=== PATIENT | male | born 1970 ===

== ENCOUNTER 2017-08-27 11:38 | Emergency (ER) | payer OTHER ==
[2017-08-27 12:11] VITALS: BP 171/95; PULSE 62; TEMP 97.7; O2SAT 97; BMI 25.2
[2017-08-27 12:36] VITALS: RESP 18
--- NOTE | 2017-08-27 12:52 | ED PDOC ---
HPI: Skin/Bite Injury Time Seen by Provider: 08/27/17 12:09 Chief Complaint (Nursing): Abnormal Skin Integrity Chief Complaint (Provider): rash to both arms History Per: Patient History/Exam Limitations: no limitations Onset/Duration Of Symptoms: Days Current Symptoms Are (Timing): Still Present Additional Complaint(s): 47-year-old male presents to ED complaining of rash on bilateral upper extremities for 2 weeks. Pt states he was taking out the trash 2 weeks ago when a white powder spilled onto his upper extremities. Pt reports he was using over- the-counter cream with no relief. Does not remember the name of cream. He denies any fever or chills but has pruritus. PMD: [facility] (Dr. Cassidy) Past Medical History Reviewed: Historical Data, Nursing Documentation, Vital Signs Vital Signs: Last Vital Signs Temp 97.7 F 08/27/17 12:15 Pulse 62 08/27/17 12:15 Resp 18 08/27/17 12:15 BP 171/95 H 08/27/17 12:15 Pulse Ox 97 08/27/17 13:08 - Medical History PMH: Asthma, HTN - Surgical History Surgical History: No Surg Hx - Family History Family History: States: No Known Family Hx - Living Arrangements Living Arrangements: With Family - Social History Current smoker - smoking cessation education provided: No Alcohol: Social Drugs: Denies - Home Medications Home Medications: Ambulatory Orders Medication Instructions Recorded Fluticasone Nasal [Flonase] 1 spr NS BID #1 spr 03/24/16 Guaifenesin/Pseudoephedrne HCl 1 each PO BID #20 tab.er.12h 03/24/16 [Mucinex D ER 600-60 mg Tablet] Ibuprofen [Motrin Tab] 600 mg PO Q8 #30 tab 03/24/16 Oseltamivir [Tamiflu] 75 mg PO BID #9 cap 03/24/16 Hydrocortisone [Hydrocortisone 1 applic TOP BID #1 tube 08/27/17 2.5% Cream] - Allergies Allergies/Adverse Reactions: Allergies Allergy/AdvReac Type Severity Reaction Status Date / Time fruits Allergy Uncoded 03/24/16 20:59 Review of Systems ROS Statement: Except As Marked, All Systems Reviewed And Found Negative Skin: Positive for: Rash Physical Exam - Reviewed Nursing Documentation Reviewed: Yes Vital Signs Reviewed: Yes - Physical Exam Appears: Positive for: Well, Non-toxic, No Acute Distress Skin: Positive for: Rash ((+) erythematous macular and papular rash to bilateral forearms) Eye Exam: Positive for: Normal appearance Extremity: Positive for: Normal ROM Neurologic/Psych: Positive for: Alert, Oriented - ECG O2 Sat by Pulse Oximetry: 97 (RA) Pulse Ox Interpretation: Normal Medical Decision Making Medical Decision Making: Impression(s): Contact Dermatitis Upon provider evaluation patient is medically stable, and requires no further treatment in the ED at this time. Patient will be discharged with Rx for Hydrocortisone 2.5% Cream AND instructions for [id number] Benadryl for itching. Counseling was provided and all questions were answered regarding diagnosis and need for follow up with PCP in 2-3 days. There is agreement to discharge plan. Return if symptoms persist or worsen. Scribe Attestation: Documented by Emanuel Castro, acting as a scribe for Miri Vargas PA-C. Provider Scribe Attestation: All medical record entries made by the Scribe were at my direction and personally dictated by me. I have reviewed the chart and agree that the record accurately reflects my personal performance of the history, physical exam, medical decision making, and the department course for this patient. I have also personally directed, reviewed, and agree with the discharge instructions and disposition. Disposition - Clinical Impression Clinical Impression: Contact dermatitis - Patient ED Disposition Is Patient to be Admitted: No Counseled Patient/Family Regarding: Diagnosis, Need For Followup, Rx Given - Disposition Referrals: Ana Cassidy MD [Medical Doctor] - Disposition: Routine/Home Disposition Time: 12:51 Condition: STABLE Additional Instructions: Take over the counter benadryl for itching. Apply rx cream as directed. Follow up with primary care doctor in 2-3 days. Prescriptions: Hydrocortisone [Hydrocortisone 2.5% Cream] 1 applic TOP BID #1 tube Instructions: Contact Dermatitis (DC) Forms: [facility] (Wolof) Print Language: TAJIK
== END 2017-08-27 13:08 | disposition home or self-care (01) ==
LOC: H.ER 11:38
DX: I10 Essential (primary) hypertension (principal); J45.909 Unspecified asthma, uncomplicated; L25.9 Unspecified contact dermatitis, unspecified cause